=== PATIENT | female | born 1970 ===

== ENCOUNTER 2018-06-06 10:04 | Outpatient (CLI) | payer BC | END 2018-06-06 10:05 | disposition home or self-care (01) | LOC: C.MAMMO 10:05 | DX: Z12.31 Encounter for screening mammogram for malignant neoplasm of breast (principal) ==

== ENCOUNTER 2018-07-03 11:01 | Outpatient (CLI) | payer BC | END 2018-07-03 11:02 | disposition home or self-care (01) | LOC: C.MAMMO 11:01 | DX: R92.8 Other abnormal and inconclusive findings on diagnostic imaging of breast (principal) ==